=== PATIENT | male | born 2000 | race Hispanic/Latino ===

== ENCOUNTER 2018-03-19 19:08 | Emergency (ER) | payer SELFPAY ==
--- NOTE | 2018-03-19 21:15 | RAD REPORT ---
EXAM DESCRIPTION: US - Abdomen Exam Limited - 03/19/2018 8:43 pm CLINICAL HISTORY: Abdominal pain COMPARISON: None. FINDINGS: No gallstones, sludge or other abnormalities within the gallbladder lumen. There is no wal l thickening or pericholecystic fluid. No common duct stone or biliary tree dilatation identified. IMPRESSION: Normal gallbladder and biliary tree ultrasound.
--- NOTE | 2018-03-19 21:15 | RAD REPORT ---
EXAM DESCRIPTION: RAD - Chest Pa And Lat (2 Views) - 03/19/2018 7:52 pm CLINICAL HISTORY: Chest pain, shortness of breath, history of recent trauma COMPARISON: None. TECHNIQUE: PA and lateral views of the chest were obtained. FINDINGS: The lungs are clear. Heart size is normal and central vasculature is within normal limit s. No pleural effusion or pneumothorax seen. No rib deformity seen. No acute bone finding identifia ble. No aortic abnormality. IMPRESSION: No acute cardiopulmonary process.
[2018-03-19 21:20] LABS: Absolute Lymphocytes (CBC) 1.9 K/uL (0.7-4.9); Absolute Monocytes 0.4 K/uL (0.1-1.3); Absolute Neutrophil 6.4 K/uL (1.8-8.0); Basophils % 0.5 % (0-1.3); Eosinophils % 0.3 % (0-4.4); Hematocrit 45.6 % (39.6-49.0); Lymphocytes % 21.4 % (15.3-44.8); MPV 9.6 fL (7.6-11.3); Monocytes % 4.4 % (3.3-12.3); RBC Red Blood Cell Count 5.12 M/uL (4.33-5.43)
[2018-03-19 21:28] LABS: ALT/SGPT 16 U/L (12-78); AST/SGOT 13 U/L (15-37); Albumin 4.2 g/dL (3.4-5.0); Alkaline Phosphatase 93 U/L (45-117); BUN Blood Urea Nitrogen 12 mg/dL (7-18); Bicarbonate 29 mmol/L (21-32); Bilirubin Direct 0.1 mg/dL (0-0.2); Bilirubin Total 0.4 mg/dL (0.2-1.0); Glucose Level 96 mg/dL (74-106); Lipase 103 U/L (73-393); Potassium 3.8 mmol/L (3.5-5.1); Protein, Total 7.4 g/dL (6.4-8.2); Sodium Level 142 mmol/L (136-145)
--- NOTE | 2018-03-19 21:47 | ER ---
Nurse's Notes [facility] Name: Cornelius Gooden Age: 17 yrs Sex: Male : 2000 Arrival Date: 03/19/2018 Time: 19:11 Bed 12 Private MD: Diagnosis: Epigastric pain Presentation: 03/19 19:25 Presenting complaint: Patient states: 3 months ago I hit my side with a piece of wood aj1 near by ribs, now I have been feeling short of breath now for the past week. Patient reports cough. Patient reports chills, but has not checked his temperature. Respirations are even and unlabored. Breath sounds CTA. Transition of care: patient was not received from another setting of care. Onset of symptoms was March 02, 2018. Risk Assessment: Do you want to hurt yourself or someone else? Patient reports no desire to harm self or others. Initial Sepsis Screen: Does the patient meet any 2 criteria? No. Patient's initial sepsis screen is negative. Does the patient have a suspected source of infection? No. Patient's initial sepsis screen is negative. Care prior to arrival: None. 19:25 Method Of Arrival: Ambulatory [facility] 19:25 Acuity: SAIGE 4 aj1 Triage Assessment: 19:30 General: Appears in no apparent distress. comfortable, Behavior is calm, cooperative, aj1 appropriate for age. Pain: Complains of pain in right lateral anterior chest and right lateral posterior chest Pain does not radiate. Pain currently is 5 out of 10 on a pain scale. EENT: Denies nasal congestion, nasal discharge. Neuro: Level of Consciousness is awake, alert, obeys commands. Cardiovascular: Patient's skin is warm and dry. Respiratory: Airway is patent Respiratory effort is even, unlabored, Respiratory pattern is regular, symmetrical, Breath sounds are clear bilaterally. Historical: - Allergies: 19:30 No Known Allergies; aj1 - Home Meds: 19:30 None [Active]; aj1 - PMHx: 19:30 None; aj1 - PSHx: 19:30 None; aj1 - Immunization history:: Flu vaccine is not up to date. - Social history:: Smoking status: Patient uses tobacco products, denies chronic smoking, but will smoke occasionally. - Ebola Screening: : Patient denies travel to an Ebola-affected area in the 21 days before illness onset. Screenin:21 Abuse screen: Denies threats or abuse. Nutritional screening: No deficits noted. bb Tuberculosis screening: No symptoms or risk factors identified. Fall Risk None identified. Assessment: 20:21 General: Appears in no apparent distress. slender, Behavior is calm, cooperative, bb Reports pain in right flank. Neuro: Level of Consciousness is awake, alert, obeys commands, Oriented to person, place, time, situation. Cardiovascular: No deficits noted. Respiratory: Respiratory effort is even, unlabored, Respiratory pattern is regular. GI: Abdomen is flat, non-distended, Reports upper abdominal pain. Derm: Skin is dry, Skin is normal, Skin temperature is warm. Musculoskeletal: Circulation, motion, and sensation intact. 22:06 Reassessment: Patient is alert, oriented x 3, equal unlabored respirations, skin bb warm/dry/pink. pt verbalized understanding of and agrees to plan of care discharge instructions given pt ambulated with steady gait to exit accompanied by friend. Vital Signs: 19:30 BP 130 / 65; Pulse 78; Resp 18; Temp 98.3; Pulse Ox 100% on R/A; Pain 5/10; aj1 22:07 BP 104 / 72; Pulse 69; Resp 16 S; Temp 99(O); Pulse Ox 100% on R/A; bb ED Course: 19:11 Patient arrived in ED. al2 19:30 Triage completed. aj1 19:30 Arm band placed on Patient placed in waiting room, Patient notified of wait time. aj1 19:51 Chest Pa And Lat (2 Views) XRAY In Process Unspecified. EDMS 20:13 Jv Sesay PA is PHCP. jr8 20:13 Kehinde Torres MD is Attending Physician. jr8 20:21 Diamond Barth, JENNYFER is Primary Nurse. bb 20:21 Patient has correct armband on for positive identification. Bed in low position. Call bb light in reach. Adult w/ patient. 20:49 US Abdomen Limited In Process Unspecified. EDMS 21:00 Initial lab(s) drawn, by me, sent to lab. Inserted saline lock: 20 gauge in right bb antecubital area, using aseptic technique. Blood collected. 21:47 Salvador Ley MD is Referral Physician. jr8 22:07 No provider procedures requiring assistance completed. IV discontinued, intact, rizwana bleeding controlled, No redness/swelling at site. Pressure dressing applied. Administered Medications: No medications were administered Outcome: 21:47 Discharge ordered by MD. rowan 22:08 Discharged to home ambulatory, with friend. rizwana 22:08 Condition: stable 22:08 Discharge instructions given to patient, Instructed on discharge instructions, follow up and referral plans. no driving heavy equipment, medication usage, Demonstrated understanding of instructions, follow-up care, medications, Prescriptions given X 2. 22:08 Patient left the ED. rizwana Signatures: Dispatcher [employer] EDMS Paola Carlson RN RN aj1 Diamond Barth RN RN bb Jv Sesay PA PA jr8 Mayte Estrada2
--- NOTE | 2018-03-19 21:47 | EDPHYS ---
Physician Documentation [facility] Name: Cornelius Gooden Age: 17 yrs Sex: Male : 2000 Arrival Date: 03/19/2018 Time: 19:11 Bed 12 Private MD: ED Physician Kehinde Torres HPI: 03/19 21:45 This 17 yrs old Male presents to ER via Ambulatory with complaints of jr8 abdominal pain. 21:45 The patient presents with abdominal pain in the epigastric area, in the right upper jr8 quadrant. Onset: The symptoms/episode began/occurred acutely, 3 day(s) ago. The symptoms do not radiate. Associated signs and symptoms: none. The symptoms are described as stabbing. Modifying factors: The symptoms are alleviated by nothing, the symptoms are aggravated by nothing. Severity of pain: At its worst the pain was moderate in the emergency department the pain is unchanged. The patient has not experienced similar symptoms in the past. The patient has not recently seen a physician. Historical: - Allergies: 19:30 No Known Allergies; aj1 - Home Meds: 19:30 None [Active]; aj1 - PMHx: 19:30 None; aj1 - PSHx: 19:30 None; aj1 - Immunization history:: Flu vaccine is not up to date. - Social history:: Smoking status: Patient uses tobacco products, denies chronic smoking, but will smoke occasionally. - Ebola Screening: : Patient denies travel to an Ebola-affected area in the 21 days before illness onset. ROS: 21:45 Eyes: Negative for injury, pain, redness, and discharge, ENT: Negative for injury, jr8 pain, and discharge, Neck: Negative for injury, pain, and swelling, Cardiovascular: Negative for chest pain, palpitations, and edema, Respiratory: Negative for shortness of breath, cough, wheezing, and pleuritic chest pain, Back: Negative for injury and pain, MS/Extremity: Negative for injury and deformity, Skin: Negative for injury, rash, and discoloration, Neuro: Negative for headache, weakness, numbness, tingling, and seizure. 21:45 Abdomen/GI: Positive for abdominal pain, Negative for nausea, vomiting, and diarrhea, abdominal distension, anorexia, dysphagia, hematemesis, black/tarry stool, rectal pain, rectal bleeding, bowel incontinence, flatulence. Exam: 21:45 Eyes: Pupils equal round and reactive to light, extra-ocular motions intact. Lids and jr8 lashes normal. Conjunctiva and sclera are non-icteric and not injected. Cornea within normal limits. Periorbital areas with no swelling, redness, or edema. ENT: Nares patent. No nasal discharge, no septal abnormalities noted. Tympanic membranes are normal and external auditory canals are clear. Oropharynx with no redness, swelling, or masses, exudates, or evidence of obstruction, uvula midline. Mucous membranes moist. Neck: Trachea midline, no thyromegaly or masses palpated, and no cervical lymphadenopathy. Supple, full range of motion without nuchal rigidity, or vertebral point tenderness. No Meningismus. Cardiovascular: Regular rate and rhythm with a normal S1 and S2. No gallops, murmurs, or rubs. Normal PMI, no JVD. No pulse deficits. Respiratory: Lungs have equal breath sounds bilaterally, clear to auscultation and percussion. No rales, rhonchi or wheezes noted. No increased work of breathing, no retractions or nasal flaring. Back: No spinal tenderness. No costovertebral tenderness. Full range of motion. Skin: Warm, dry with normal turgor. Normal color with no rashes, no lesions, and no evidence of cellulitis. MS/ Extremity: Pulses equal, no cyanosis. Neurovascular intact. Full, normal range of motion. Neuro: Awake and alert, GCS 15, oriented to person, place, time, and situation. Cranial nerves II-XII grossly intact. Motor strength 5/5 in all extremities. Sensory grossly intact. Cerebellar exam normal. Normal gait. 21:45 Abdomen/GI: Inspection: abdomen appears normal, Bowel sounds: active, all quadrants, Palpation: soft, in all quadrants, mild abdominal tenderness, in the epigastric area and right upper quadrant, mass, is not appreciated, rebound tenderness, is not appreciated, voluntary guarding, is not appreciated, involuntary guarding, is not appreciated, no appreciated organomegaly, Indicators: McBurney's point is not tender, Rios's sign is negative, Rovsing's sign is negative, Liver: tenderness, is not appreciated. Vital Signs: 19:30 BP 130 / 65; Pulse 78; Resp 18; Temp 98.3; Pulse Ox 100% on R/A; Pain 5/10; aj1 22:07 BP 104 / 72; Pulse 69; Resp 16 S; Temp 99(O); Pulse Ox 100% on R/A; bb MDM: 20:13 Patient medically screened. jr8 21:45 Differential diagnosis: bowel obstruction, cholecystitis, Cholelithiasis, jr8 diverticulitis, gastritis, gastroesophageal reflux disease, non-specific abd pain, pancreatitis, Peptic Ulcer Disease, Perf. Duodenal Ulcer, Perf. Gastric Ulcer. Data reviewed: vital signs, nurses notes, lab test result(s), radiologic studies, ultrasound, and as a result, I will discharge patient. Data interpreted: Pulse oximetry: on room air is 100 %. Interpretation: normal. Counseling: I had a detailed discussion with the patient and/or guardian regarding: the historical points, exam findings, and any diagnostic results supporting the discharge/admit diagnosis, lab results, radiology results, the need for outpatient follow up, a staff respiratory therapist, to return to the emergency department if symptoms worsen or persist or if there are any questions or concerns that arise at home. Special discussion: Based on the patient's Hx, exam, and Dx evaluation, there is no indication for emergent surgery or inpatient Tx. It is understood by the patient/guardian that if the Sx's persist or worsen they need to return immediately for re-evaluation. 03/19 20:25 Order name: Basic Metabolic Panel; Complete Time: :48 03/19 20:25 Order name: CBC with Diff; Complete Time: :48 03/19 19:34 Order name: Chest Pa And Lat (2 Views) XRAY; Complete Time: 21:23 [facility] 03/19 20:25 Order name: Creatinine for Radiology; Complete Time: :48 03/19 20:25 Order name: Hepatic Function; Complete Time: :48 03/19 20:25 Order name: Lipase; Complete Time: :48 03/19 20:25 Order name: IV Saline Lock; Complete Time: 21:11 03/19 20:25 Order name: Labs collected and sent; Complete Time: 21:11 03/19 20:25 Order name: US Abdomen Limited; Complete Time: 21:23 Administered Medications: No medications were administered Disposition: 03/20 06:51 Co-signature as Attending Physician, Kehinde Torres MD I agree with the assessment and chon plan of care. Disposition: 03/19/18 21:47 Discharged to Home. Impression: Epigastric pain. - Condition is Stable. - Discharge Instructions: Abdominal Pain, Adult, Gastritis, Adult. - Prescriptions for Tylenol- Codeine #3 300-30 mg Oral Tablet - take 2 tablets by ORAL route every 6 hours As needed; 12 tablet. Pepcid 20 mg Oral Tablet - take 1 tablet by ORAL route once daily; 20 tablet. - Medication Reconciliation Form, Thank You Letter, Antibiotic Education, Prescription Opioid Use form. - Follow up: Salvador Ley MD; When: 5 - 6 days; Reason: Recheck today's complaints, Continuance of care, Re-evaluation by your physician. - Problem is new. - Symptoms have improved. Signatures: Dispatcher [employer] EDMS Paola Carlson RN RN ajKehinde Gaona MD MD cha Ballard, Brenda, RN RN Jv Nieto PA PA jr8 Corrections: (The following items were deleted from the chart) 03/19 22:08 21:47 03/19/2018 21:47 Discharged to Home. Impression: Epigastric pain. Condition is bb Stable. Forms are Medication Reconciliation Form, Thank You Letter, Antibiotic Education, Prescription Opioid Use. Follow up: Salvador Ley; When: 5 - 6 days; Reason: Recheck today's complaints, Continuance of care, Re-evaluation by your physician. Problem is new. Symptoms have improved. jr8
== END 2018-03-19 22:08 | disposition home or self-care (01) ==
LOC: ER 19:08
DX: R10.13 Epigastric pain (principal); Z72.0 Tobacco use
CPT/HCPCS: 36415; 71046; 76705; 80048; 80076; 83690; 85025; 99284